=== PATIENT | male | born 1965 | race Caucasian/White ===

== ENCOUNTER 2020-10-29 23:25 | Inpatient (IN) | payer OTHER ==
[~2020-10-29] VITALS: Ht 177.8 cm; Wt 105.0 kg
[2020-10-29] MEDS ORDERED: CITA20TA6 PO (23:32)
--- NOTE | 2020-10-29 23:36 | NUR ---
PT BIB [facility] FROM [facility] FOR INCREASING JAUNDICE AND A HIGH BILI. PT HAD A MRCP BACK IN JANUARY THAT WAS NEGATIVE. PT REPORTS RECENT ABX USE FOR UTI/SINUS INFECTION. PT DENIES ANY PAIN, NOTICABLE JAUNDICE ON TOP OF HEAD AND IN SCLERA. PT RESTING ON GURNEY, PROVIDED WARM BLANKET FOR COMFORT, NAD, PLACED ON SPO2/BP/ECG MONITORING AT THIS TIME. ANA. PAT YBARRA AT BS.
[2020-10-30] MEDS ORDERED: SODIUM CHLORIDE FLUSH 10ML SYR IVF ONE
[2020-10-30] MEDS ORDERED: SODIUM CHLORIDE 0.9% 1,000 ML IV ONE
--- NOTE | 2020-10-30 00:10 | NUR ---
REPORT FROM RANDEE BOSWELL. PT AWAKE/ALERT, TALKATIVE. NAD NOTED. PT UPDATED TO POC (LABS/RESULTS/RECHECK) AND DEMONSTRATES UNDERSTANDING.
[2020-10-30 00:13] LABS: BASOPHILS % (AUTO) 1 % (0-1); EOSINOPHILS % (AUTO) 4 % (1-7); LYMPHOCYTES % (AUTO) 13 % (22-44); MEAN CORPUSCULAR HEMOGLOBIN 29.9 pg (27.5-34.5); MEAN PLATELET VOLUME 8.6 fL (7.4-10.4); MONOCYTES % (AUTO) 8 % (2-9); NEUTROPHILS % (AUTO) 75 % (42-75); PLATELET COUNT 265 x10^3/uL (130-400); RED BLOOD COUNT 5.03 x10^6/uL (4.38-5.82); RED CELL DISTRIBUTION WIDTH 17.2 % (9.4-14.8)
[2020-10-30 00:14] LABS: MD NO
[2020-10-30 00:24] LABS: ALANINE AMINOTRANSFERASE 316 U/L (12-78); ALBUMIN 2.9 g/dL (3.4-5.0); ANION GAP 9 mmol/L (5-15); CALCIUM 8.5 mg/dL (8.5-10.1); CHLORIDE 106 mmol/L (98-107); CREATININE 0.89 mg/dL (0.7-1.3)
[2020-10-30 00:26] LABS: ALKALINE PHOSPHATASE 519 U/L (45-117); BILIRUBIN,TOTAL 12.8 mg/dL (0.2-1.0); TOTAL PROTEIN 6.5 g/dL (6.4-8.2)
--- NOTE | 2020-10-30 00:55 | NUR ---
PT RESTING IN ALISHA FRAGOSO NOTED. DENIES NEED FOR PAIN/NAUSEA MEDICATIONS.
--- NOTE | 2020-10-30 01:11 | NUR ---
Report received from RANDEE Cannon. This RN to assume care.
--- NOTE | 2020-10-30 02:09 | NUR ---
Patient sleeping in gurney. Respirations even and unlabored. No complaints/needs at this time.
--- NOTE | 2020-10-30 03:10 | NUR ---
Patient sleeping in gurney. Respirations even and unlabored. No complaints/needs at this time.
--- NOTE | 2020-10-30 04:19 | NUR ---
Hospital bed requested.
[2020-10-30] MEDS ORDERED: DIPHENHYDRAMINE 50 MG/ML, 1ML ONE (05:14)
--- NOTE | 2020-10-30 05:20 | NUR ---
Patient to MRI.
--- NOTE | 2020-10-30 05:40 | NUR ---
Received hospital bed. Moved to patient's room; ready for patient after he returns from MRI.
[2020-10-30] MEDS ORDERED: DIPHENHYDRAMINE 50 MG/ML, 1ML IVPush ONE (06:00)
--- NOTE | 2020-10-30 06:00 | NUR ---
Patient returned from CT.
--- NOTE | 2020-10-30 07:06 | NUR ---
Report given to RANDEE Mccall. Patient care transferred.
[2020-10-30 07:08] LABS: BASOPHILS % (AUTO) 1 % (0-1); EOSINOPHILS % (AUTO) 4 % (1-7); LYMPHOCYTES % (AUTO) 19 % (22-44); MEAN CORPUSCULAR HEMOGLOBIN 30.5 pg (27.5-34.5); MEAN CORPUSCULAR HGB CONC 34.3 g/dL (33.2-36.2); MEAN PLATELET VOLUME 8.3 fL (7.4-10.4); MONOCYTES % (AUTO) 7 % (2-9); NEUTROPHILS % (AUTO) 70 % (42-75); PLATELET COUNT 248 x10^3/uL (130-400); RED BLOOD COUNT 4.82 x10^6/uL (4.38-5.82); RED CELL DISTRIBUTION WIDTH 17.6 % (9.4-14.8)
[2020-10-30 07:09] LABS: MD NO
[2020-10-30 07:22] LABS: ALBUMIN 2.9 g/dL (3.4-5.0); ANION GAP 5 mmol/L (5-15); CALCIUM 8.6 mg/dL (8.5-10.1); CHLORIDE 107 mmol/L (98-107)
--- NOTE | 2020-10-30 07:30 | NUR ---
PT UP TO BR WITH STEADY GAIT. PT NPO FOR ANTICPATED PROCEDURE THIS AM, PT AWARE OF POC, NO NEEDS AT THIS TIME
[2020-10-30 07:31] LABS: ALANINE AMINOTRANSFERASE 288 U/L (12-78); ALKALINE PHOSPHATASE 494 U/L (45-117); BILIRUBIN,TOTAL 13.1 mg/dL (0.2-1.0); TOTAL PROTEIN 6.4 g/dL (6.4-8.2)
--- NOTE | 2020-10-30 09:44 | NUR ---
FUAD [phone]
--- NOTE | 2020-10-30 10:42 | NUR ---
AWAITING GI EVAL, PT TO REMAIN NPO, PT UPDATED
[2020-10-30] MEDS: ENOXAPARIN 40 MG/0.4 ML SQ SCH (11:30)
[2020-10-30] MEDS ORDERED: ONDANSETRON ODT 4 MG PO PRN (11:30)
[2020-10-30] MEDS ORDERED: ONDANSETRON 2MG/ML, 2ML IVPush PRN (11:30)
--- NOTE | 2020-10-30 13:32 | NUR ---
ADMITTING MD AGAIN CALLED, GI STILL NOT HAS SEEN PT, PT BECOMING FRUSTRATED "ITS BEEN 24 HOURS SINCE I HAVE EATEN OR DRANK ANYTHING" OK PER ADMITTING MD DR MARIEE FOR PT TO HAVE CLD DESPITE GI NOT SEEING PT YET.
--- NOTE | 2020-10-30 14:53 | NUR ---
REPORT TO RECIEVING RN
[2020-10-30 16:03] VITALS: BP 105/68
[2020-10-30] MEDS: LACTATED RINGERS 1,000 ML IV SCH (17:55)
[2020-10-30] MEDS: CEFTRIAXONE PMX 2GM/50ML 50 ML IVPB SCH (18:04)
[2020-10-30] MEDS ORDERED: DIPHENHYDRAMINE 50 MG/ML, 1ML IVPush PRN (18:30)
[2020-10-30] MEDS: METRONIDAZOLE PMX 500MG/100ML 100 ML IV SCH (18:44)
[2020-10-30 19:56] VITALS: BP 114/69
[2020-10-30] MEDS: FAMOTIDINE 20 MG TABLET PO SCH (22:35)
[2020-10-31] MEDS: METRONIDAZOLE PMX 500MG/100ML 100 ML IV SCH ×3 (02:58→18:16)
[2020-10-31] MEDS: LACTATED RINGERS 1,000 ML IV SCH ×3 (02:58→21:29)
[2020-10-31 03:46] VITALS: BP 108/72
[2020-10-31 05:48] LABS: BASOPHILS % (AUTO) 1 % (0-1); EOSINOPHILS % (AUTO) 3 % (1-7); LYMPHOCYTES % (AUTO) 30 % (22-44); MEAN CORPUSCULAR HEMOGLOBIN 30.5 pg (27.5-34.5); MEAN PLATELET VOLUME 8.7 fL (7.4-10.4); MONOCYTES % (AUTO) 7 % (2-9); NEUTROPHILS % (AUTO) 59 % (42-75); PLATELET COUNT 242 x10^3/uL (130-400); RED BLOOD COUNT 4.63 x10^6/uL (4.38-5.82); RED CELL DISTRIBUTION WIDTH 17.6 % (9.4-14.8)
[2020-10-31 05:57] LABS: MD NO
[2020-10-31 06:04] LABS: ALBUMIN 2.8 g/dL (3.4-5.0); ANION GAP 7 mmol/L (5-15); CALCIUM 8.6 mg/dL (8.5-10.1); CHLORIDE 109 mmol/L (98-107)
[2020-10-31 06:10] LABS: ALANINE AMINOTRANSFERASE 233 U/L (12-78); ALKALINE PHOSPHATASE 430 U/L (45-117); BILIRUBIN,TOTAL 12.1 mg/dL (0.2-1.0); CREATININE 1.02 mg/dL (0.7-1.3); TOTAL PROTEIN 6.2 g/dL (6.4-8.2)
[2020-10-31 07:08] VITALS: BP 115/65
[2020-10-31] MEDS: FAMOTIDINE 20 MG TABLET PO SCH ×2 (09:38→21:29)
[2020-10-31] MEDS: ENOXAPARIN 40 MG/0.4 ML SQ SCH (11:30)
[2020-10-31 16:07] VITALS: BP 122/71
[2020-10-31] MEDS: CEFTRIAXONE PMX 2GM/50ML 50 ML IVPB SCH (17:25)
[2020-10-31 19:35] VITALS: BP 126/78
[2020-11-01 02:21] VITALS: BP 124/76
[2020-11-01] MEDS: METRONIDAZOLE PMX 500MG/100ML 100 ML IV SCH ×3 (02:30→16:59)
[2020-11-01] MEDS: LACTATED RINGERS 1,000 ML IV SCH ×2 (05:19→19:41)
[2020-11-01] MEDS: FAMOTIDINE 20 MG TABLET PO SCH ×2 (07:11→19:41)
[2020-11-01 07:35] VITALS: BP 106/69
[2020-11-01 13:20] VITALS: BP 114/74
[2020-11-01] MEDS ORDERED: CHLORHEXIDINE 15 ML UDC ONE (13:39)
[2020-11-01] MEDS ORDERED: FENTANYL PF 250 MCG/5ML ONE (13:55)
[2020-11-01] MEDS ORDERED: FENTANYL PF 100 MCG/2ML IV PRN (14:00)
[2020-11-01] MEDS ORDERED: HALOPERIDOL 5 MG/ML IV PRN (14:00)
[2020-11-01] MEDS ORDERED: DIPHENHYDRAMINE 50 MG/ML, 1ML IVPush PRN (14:00)
[2020-11-01] MEDS ORDERED: MEPERIDINE/PF 25MG/0.5ML IVPush PRN (14:00)
[2020-11-01] MEDS ORDERED: LABETALOL 5MG/ML, 20ML IV PRN (14:00)
[2020-11-01] MEDS ORDERED: OXYcodone 5 MG/5 ML ORAL.SOL UDC PO PRN (14:00)
[2020-11-01] MEDS ORDERED: PROMETHAZINE 25 MG/ML, 1ML IVPush PRN (14:00)
[2020-11-01] MEDS ORDERED: HYDROmorphone 1 MG/ML, 1ML INJ IVPush PRN (14:00)
[2020-11-01] MEDS ORDERED: hydrALAzine 20 MG/ML, 1ML IV PRN (14:00)
[2020-11-01] MEDS ORDERED: DOXYCYCLINE 100 MG in DEXTROSE 5% 250 ML IV SCH (14:30)
[2020-11-01] MEDS ORDERED: NEOSTIGMINE 1 MG/ML, 10ML ONE (15:18)
[2020-11-01] MEDS ORDERED: SUCCINYLCHOLINE 20 MG/ML, 10ML ONE (15:18)
[2020-11-01] MEDS ORDERED: ONDANSETRON 2MG/ML, 2ML ONE (15:18)
[2020-11-01] MEDS ORDERED: CEFAZOLIN 1,000 MG ONE (15:18)
[2020-11-01] MEDS ORDERED: GLYCOPYRROLATE 0.2MG/1ML, 5ML ONE (15:18)
[2020-11-01] MEDS ORDERED: ROCURONIUM 10MG/ML,5ML ONE (15:18)
[2020-11-01] MEDS ORDERED: PROPOFOL 10 MG/ML, 20ML ONE (15:18)
[2020-11-01] MEDS ORDERED: CEFTRIAXONE PMX 2GM/50ML 50 ML IVPB SCH (16:00)
[2020-11-01 20:41] VITALS: BP 143/83
[2020-11-02 00:04] VITALS: BP 121/65
[2020-11-02] MEDS: METRONIDAZOLE PMX 500MG/100ML 100 ML IV SCH ×2 (00:22→09:25)
[2020-11-02] MEDS: LACTATED RINGERS 1,000 ML IV SCH ×2 (03:45→13:11)
[2020-11-02] MEDS: ENOXAPARIN 40 MG/0.4 ML SQ SCH (05:13)
[2020-11-02 05:21] VITALS: BP 123/63
[2020-11-02 06:27] LABS: BASOPHILS % (AUTO) 1 % (0-1); EOSINOPHILS % (AUTO) 0 % (1-7); LYMPHOCYTES % (AUTO) 11 % (22-44); MEAN CORPUSCULAR HEMOGLOBIN 30.1 pg (27.5-34.5); MEAN PLATELET VOLUME 8.8 fL (7.4-10.4); MONOCYTES % (AUTO) 5 % (2-9); NEUTROPHILS % (AUTO) 83 % (42-75); PLATELET COUNT 212 x10^3/uL (130-400); RED BLOOD COUNT 4.42 x10^6/uL (4.38-5.82); RED CELL DISTRIBUTION WIDTH 17.8 % (9.4-14.8)
[2020-11-02 06:37] LABS: CHLORIDE 105 mmol/L (98-107)
[2020-11-02 06:46] LABS: ALANINE AMINOTRANSFERASE 153 U/L (12-78); ALBUMIN 2.7 g/dL (3.4-5.0); ALKALINE PHOSPHATASE 365 U/L (45-117); ANION GAP 4 mmol/L (5-15); BILIRUBIN,TOTAL 6.7 mg/dL (0.2-1.0); CALCIUM 8.5 mg/dL (8.5-10.1); CREATININE 0.77 mg/dL (0.7-1.3); TOTAL PROTEIN 6.1 g/dL (6.4-8.2)
[2020-11-02 07:40] LABS: MD NO
[2020-11-02 07:46] VITALS: BP 119/71
[2020-11-02] MEDS: FAMOTIDINE 20 MG TABLET PO SCH (09:25)
[2020-11-02 14:02] VITALS: BP 107/61
== END 2020-11-02 17:12 | disposition home or self-care (01) | DRG 435 ==
LOC: ED 10-30 01:02 → EDIP 10-30 01:35 → 4NE 10-30 15:51
PROVIDERS: ADMIT Family Medicine; ATTEND Family Medicine
PROC: 0F798DZ Dilation of Common Bile Duct with Intraluminal Device, Via Natural or Artificial Opening Endoscopic (ICD-10-PCS; 2020-11-01)
PROC: 0FBG8ZX Excision of Pancreas, Via Natural or Artificial Opening Endoscopic, Diagnostic (ICD-10-PCS; 2020-11-01)
PROC: 0DJD8ZZ Inspection of Lower Intestinal Tract, Via Natural or Artificial Opening Endoscopic (ICD-10-PCS; principal; 2020-11-01 14:00)
DX: C25.9 Malignant neoplasm of pancreas, unspecified (principal); K83.1 Obstruction of bile duct; Z20.828 Contact with and (suspected) exposure to other viral communicable diseases; K86.89 Other specified diseases of pancreas; L29.9 Pruritus, unspecified; N28.1 Cyst of kidney, acquired; R73.03 Prediabetes; Z87.440 Personal history of urinary (tract) infections; Z88.1 Allergy status to other antibiotic agents; Z79.899 Other long term (current) drug therapy; Z79.891 Long term (current) use of opiate analgesic; Z79.01 Long term (current) use of anticoagulants
CPT/HCPCS: 36415; 74181; 74328; 80053; 82962; 83690; 83735; 85025; 86301; 87635; 88172; 88173; 88305; 93005; G0378; J0690; J0696; J1650; J2405; J2704; J2710; J3010; C1769; C1894; C2625; J0330; J1200; J7030; J7120